=== PATIENT | female | born 1950 | race Caucasian/White ===

== ENCOUNTER 2016-04-18 17:02 | Outpatient (CLI) | payer OTHER | END 2016-04-18 17:03 | disposition home or self-care (01) | DX: M79.669 Pain in unspecified lower leg (principal) ==

== ENCOUNTER → 2016-10-17 | Outpatient (CLI) | payer OTHER ==
[2016-10-17 19:33] LABS: FERRITIN 160.4 ng/mL (11.0-306.8)
[2016-10-17 19:45] LABS: THYROID STIMULATING HORMONE 1.52 uIU/mL (0.34-5.60)
[2016-10-22 07:51] LABS: T3 REVERSE 17 ng/dL (8-25)
== END ==
LOC: LAB.N 08:00
PROVIDERS: ATTEND Nurse Practitioner Family
DX: E03.2 Hypothyroidism due to medicaments and other exogenous substances (principal)
CPT/HCPCS: 36415; 82306; 82728; 84436; 84439; 84443; 84481; 84482; 86376; 86800

== ENCOUNTER 2018-01-21 08:00 | Outpatient (CLI) | payer OTHER ==
[2018-01-21 18:59] LABS: BILIRUBIN,URINE NEGATIVE (NEGATIVE); GLUCOSE, URINE (UA) NEGATIVE (NEGATIVE); KETONES,URINE (UA) NEGATIVE (NEGATIVE); LEUKOCYTE ESTERASE, URINE LARGE (NEGATIVE); NITRITE,URINE POSITIVE (NEGATIVE); OCCULT BLOOD,URINE LARGE (NEGATIVE); PROTEIN,URINE NEGATIVE (NEGATIVE); UROBILINOGEN,URINE 0.2 (NORMAL) E.U./dL (NORMAL)
[2018-01-21 19:00] LABS: CLARITY,URINE CLEAR (CLEAR)
== END 2018-01-21 23:59 | disposition home or self-care (01) ==
LOC: LAB.R 08:00
PROVIDERS: ATTEND Nurse Practitioner Family
DX: R30.9 Painful micturition, unspecified (principal)
CPT/HCPCS: 81003; 87086; 87181

== ENCOUNTER 2018-08-12 19:07 | Outpatient (CLI) | payer BC ==
--- NOTE | 2018-08-13 12:10 | Ultrasound Report ---
Reason: EPISODIC LEFT CAROTID BRUIT Procedure Date: 08/12/2018 Accession Number: [id number] / [id number] Procedure: US - Carotid Doppler Complete CPT Code: FULL RESULT: EXAM: BILATERAL CAROTID AND VERTEBRAL ARTERY DUPLEX DOPPLER ULTRASOUND: EXAM DATE: 08/12/2018 07:22 PM CLINICAL HISTORY: Episodic left carotid bruit. COMPARISON: None. TECHNIQUE: Grayscale imaging, color Doppler, and duplex spectral Doppler were used to evaluate the carotid and vertebral arteries bilaterally. Static images were obtained. FINDINGS: There is mild bilateral intimal thickening. Both carotid systems demonstrate a mixture of echogenic and hypoechoic plaque throughout the visualized course on grayscale Doppler, subjectively less than 50%. Spectral waveforms demonstrated preserved brisk systolic upstrokes throughout both carotid systems. Normal antegrade flow is present in bilateral vertebral arteries. VELOCITIES (cm/sec): Right CCA mid: PSV 79 cm/sec CCA dist: PSV 72 cm/sec ICA prox: PSV 74.4 cm/sec, EDV 28.9 cm/sec ICA mid: PSV 96.7 cm/sec, EDV 26 cm/sec ICA dist: PSV 112.6 cm/sec, EDV 46.9 cm/sec ECA: PSV 136.4 cm/sec Vert: PSV 49.1 cm/sec ICA/CCA: 1.4 Left CCA mid: PSV 73.6 cm/sec CCA dist: PSV 67.9 cm/sec ICA prox: PSV 83.0 cm/sec, EDV 37.5 cm/sec ICA mid: PSV 114.1 cm/sec, EDV 49.1 cm/sec ICA dist: PSV 96.7 cm/sec, EDV 31.8 cm/sec ECA: PSV 75.1 cm/sec Vert: PSV 70 cm/sec ICA/CCA: 1.5 ICA diameter stenosis: Right: <50% by velocity and <70% by NASCET criteria. Left: <50% by velocity and <70% by NASCET criteria. IMPRESSION: 1. Subjectively less than 50% stenosis of diffuse hypoechoic and echogenic atherosclerosis on grayscale ultrasound in the bilateral carotid artery systems. 2. In the right carotid artery there are no elevated carotid artery velocities to suggest hemodynamically significant stenosis. 3. In the left carotid artery there are no elevated carotid artery velocities to suggest hemodynamically significant stenosis. 4. Normal antegrade flow is present in bilateral vertebral arteries. General Recommendations: Stenosis =50% ICA - Follow-up ultrasound 6-12 months Stenosis <50% ICA - High Risk Patient with plaque - Follow-up ultrasound 1-2 years Normal Study but High Risk Patient - Follow-up ultrasound 3-5 years Management recommendations and diagnostic criteria are based on current IAC endorsed standards in Carotid Artery Stenosis: Grayscale and Doppler Ultrasound Diagnosis. Validated velocity measurements with angiographic measurements and velocity criteria are extrapolated from diameter data as defined by the Society of Radiologists in Ultrasound Consensus Conference Radiology 2003; 229;340-346. RADIA
== END 2018-08-12 19:08 | disposition home or self-care (01) ==
LOC: DI 19:07
PROVIDERS: ATTEND Nurse Practitioner Family
DX: R09.89 Other specified symptoms and signs involving the circulatory and respiratory systems (principal)
CPT/HCPCS: 93880

== ENCOUNTER 2018-09-20 16:28 | Emergency (ER) | payer BC ==
[2018-09-20 16:35] VITALS: BP 172/90
[2018-09-20] MEDS ORDERED: CLINDAMYCIN 150 MG CAPSULE PO STA ×2 (16:47→16:57)
[2018-09-20] MEDS ORDERED: predniSONE 20 MG TABLET PO STA (16:47)
--- NOTE | 2018-09-20 16:57 | ED Physician Documentation ---
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 She was working in the garden yesterday and may have been stung or bit by something. Today she has a progressive area of redness that is more painful than itchy but it is certainly itchy as well. No fevers or chills.) Review of Systems Constitutional: denies: Fever, Chills Cardiac: reports: Reviewed and negative Respiratory: reports: Reviewed and negative GI: reports: Reviewed and negative PD PAST MEDICAL HISTORY - Past Medical History Past Medical History: Yes Cardiovascular: None GI: GERD Musculoskeletal: None - Past Surgical History Past Surgical History: Yes HEENT: Tonsil/Adenoidectomy - Present Medications Home Medications: Ambulatory Orders Medication Instructions Recorded Confirmed Clindamycin HCl [Clindamycin 300MG 300 mg PO Q6H #28 capsule 09/20/18 CAP] predniSONE [Deltasone] 60 mg PO DAILY 5 Days tablet 09/20/18 - Allergies Allergies/Adverse Reactions: Allergies Allergy/AdvReac Type Severity Reaction Status Date / Time acyclovir Allergy Rash Verified 09/20/18 16:37 cephalexin [From Keflex] Allergy Anaphylaxis Verified 09/20/18 16:37 erythromycin base Allergy Rash Verified 09/20/18 16:37 naproxen Allergy Rash Verified 09/20/18 16:37 Penicillins Allergy Anaphylaxis Verified 09/20/18 16:37 Sulfa (Sulfonamide Allergy Rash Verified 09/20/18 16:37 Antibiotics) celecoxib [From Celebrex] AdvReac Cramps Verified 09/20/18 16:37 - Social History Does the pt smoke?: No Smoking Status: Never smoker Does the pt drink ETOH?: No Does the pt have substance abuse?: No - Immunizations Immunizations are current?: Yes - POLST Patient has POLST: No PD ED PE NORMAL - Vitals Vital signs reviewed: Yes - General General: Alert and oriented X 3, No acute distress - Derm Derm: Other (There is a area of cellulitis measuring about 4 cm around to the distal anterior left forearm without limited range of motion at the wrist.) - Neuro Neuro: Alert and oriented X 3, Normal speech Results - Vitals Vitals: Vital Signs - 24 hr 09/20/18 16:29 Temperature 36.5 C Heart Rate 79 Respiratory 18 Rate Blood Pressure 172/90 H O2 Saturation 98 Oxygen O2 Source Room air PD MEDICAL DECISION MAKING - ED course ED course: Probably a bug bite, it could be infected. The fact that it is more painful than itchy is concerning for cellulitis though. Note multiple antibiotic allergies. Departure - Departure Disposition: 01 Home, Self Care Clinical Impression: Cellulitis Qualifiers: Site of cellulitis: extremity Site of cellulitis of extremity: upper extremity Laterality: left Qualified Code(s): L03.114 - Cellulitis of left upper limb Condition: Good Record reviewed to determine appropriate education?: Yes Health Concerns: rash Plan of Treatment: Probably a bug bite, it could be infected. The fact that it is more painful than itchy is concerning for cellulitis though. Note multiple antibiotic allergies. Care Goals: improve Assessment: as above Instructions: Cellulitis Dc Prescriptions: Clindamycin HCl [Clindamycin 300MG CAP] 300 mg PO Q6H #28 capsule predniSONE [Deltasone] 60 mg PO DAILY 5 Days tablet Comments: Return for fever, worsening, other new or worrisome times. Follow-up with your doctor midweek if not resolved. Your blood pressure was elevated today on check into the emergency department. This does not mean that you have hypertension, it is a common phenomenon to come to the emergency department and have elevated blood pressure. I recommend that you see your primary care physician within the week to have it rechecked when you are feeling better.
== END 2018-09-20 17:04 | disposition home or self-care (01) ==
LOC: ED 16:28
DX: L03.114 Cellulitis of left upper limb (principal); R03.0 Elevated blood-pressure reading, without diagnosis of hypertension
CPT/HCPCS: 99282; 99283; A9270; J7512

== ENCOUNTER 2018-12-16 12:56 | Outpatient (CLI) | payer BC ==
--- NOTE | 2018-12-17 17:05 | Ultrasound Report ---
Reason: LOCALIZED SWELLING, MASS AND LUMP, LEFT LOWER LIMB Procedure Date: 12/16/2018 Accession Number: [id number] / [id number] Procedure: US - Ext Limited Non Vascular CPT Code: FULL RESULT: EXAM: LEFT LOWER EXTREMITY ULTRASOUND - LIMITED EXAM DATE: 12/16/2018 02:14 PM. CLINICAL HISTORY: LOCALIZED SWELLING, MASS AND LUMP, LEFT LOWER LIMB. COMPARISON: None. TECHNIQUE: Real-time scanning was performed with static images obtained. FINDINGS: Left anterolateral ribera soft tissues were imaged and appeared unremarkable. For comparison purposes only, right anterolateral ribera soft tissues were also imaged and appeared unremarkable as well. IMPRESSION: 1. Normal exam. No left anterolateral ribera soft tissue abnormality evident. RADIA
== END 2018-12-16 12:57 | disposition home or self-care (01) ==
LOC: DI 12:56
PROVIDERS: ATTEND Nurse Practitioner Family
DX: R22.42 Localized swelling, mass and lump, left lower limb (principal)
CPT/HCPCS: 76882

== ENCOUNTER 2019-01-08 07:05 | Outpatient (CLI) | payer BC ==
--- NOTE | 2019-01-08 22:51 | XRAY Report ---
Reason: LEFT HIP PAIN Procedure Date: 01/08/2019 Accession Number: [id number] / [id number] Procedure: XRS - Hip w/Pelvis 2-3V LT CPT Code: Final Report FULL RESULT: EXAM: LEFT HIP RADIOGRAPHY EXAM DATE: 01/08/2019 08:06 AM. CLINICAL HISTORY: LEFT HIP PAIN. COMPARISON: None. TECHNIQUE: 2 views. FINDINGS: Bones: Some subchondral cystic lucencies in the acetabular roofs, slightly more on the left than the right but bilateral. No fractures. Joints: Joint spaces appear preserved. No dislocations. Some spurring off of the acetabular roof. Soft Tissues: Calcification in the right pelvis likely represents a phlebolith. IMPRESSION: Bilateral hip osteoarthritis, left more than right, with some subchondral cystic change, but no significant joint space loss. No fractures. RADIA
--- NOTE | 2019-01-08 22:55 | XRAY Report ---
Reason: LOW BACK PAIN Procedure Date: 01/08/2019 Accession Number: [id number] / [id number] Procedure: XRS - Lumbar Spine 2 View CPT Code: Final Report FULL RESULT: EXAM: LUMBOSACRAL SPINE RADIOGRAPHY EXAM DATE: 01/08/2019 08:06 AM. CLINICAL HISTORY: LOW BACK PAIN. COMPARISONS: HIP W/PELVIS 2-3V LT 01/08/2019 8:20 AM. TECHNIQUE: 3 views. FINDINGS: Alignment: Normal. No spondylolisthesis or scoliosis. Bones: 4 [id number] lumbar vertebral bodies. L1 has hypoplastic left rib, may be right as well. No fractures. Vertebral body heights are maintained. Endplate osteophytes at L2-L3 and L3-L4. Disks: Mild disk height loss at L2-L3, L3-L4. Facets: No degenerative changes. Sacroiliac Joints: There may be some questionable ankylosis of the anterior aspect of the inferior left sacroiliac joint. Soft Tissues: Normal. The visualized bowel gas pattern is normal. IMPRESSION: Mild spondylosis of the lumbar spine. No vertebral body height loss or subluxation. RADIA
== END 2019-01-08 07:06 | disposition home or self-care (01) ==
LOC: DI.S 07:05
PROVIDERS: ATTEND Nurse Practitioner Family
DX: M16.0 Bilateral primary osteoarthritis of hip (principal); M51.36 Other intervertebral disc degeneration, lumbar region
CPT/HCPCS: 72100

== ENCOUNTER 2019-04-09 11:28 | Outpatient (CLI) | payer BC ==
[2019-04-09 17:48] LABS: BASOPHILS % (AUTO) 0.5 %; EOSINOPHILS # (AUTO) 0.2 10^3/uL (0.0-0.7); EOSINOPHILS % (AUTO) 2.9 %; HGB - HEMOGLOBIN 13.9 g/dL (12.0-16.0); LYMPHOCYTES # (AUTO) 1.8 10^3/uL (1.5-3.5); LYMPHOCYTES % (AUTO) 23.8 %; MEAN CORPUSCULAR HGB CONC 32.1 g/dL (32.0-36.0); MEAN CORPUSCULAR VOLUME 93.5 fL (81.0-99.0); MEAN PLATELET VOLUME 13.5 fL (7.9-10.8); MONOCYTES # (AUTO) 0.5 10^3/uL (0.0-1.0); MONOCYTES % (AUTO) 6.2 %; NEUTROPHILS % (AUTO) 66.3 %; PLT - PLATELET COUNT 178 10^3/uL (130-450); RED BLOOD COUNT 4.63 10^6/uL (4.20-5.40); RED CELL DISTRIBUTION WIDTH 13.1 % (12.0-15.0); WHITE BLOOD COUNT 7.6 x10^3/uL (4.8-10.8)
[2019-04-09 18:26] LABS: ALBUMIN 4.4 g/dL (3.2-5.5); ALBUMIN/GLOBULIN RATIO 1.5 (1.0-2.2); ALKALINE PHOSPHATASE 52 IU/L (42-121); ALT ALANINE AMINOTRANSFERASE 21 IU/L (10-60); AST ASPARTATE AMINOTRANSFERASE 26 IU/L (10-42); BILIRUBIN,TOTAL 1.2 mg/dL (0.2-1.0); BUN - BLOOD UREA NITROGEN 13 mg/dL (6-20); CARBON DIOXIDE - CO2 28 mmol/L (21-32); CHLORIDE 100 mmol/L (101-111); CREATININE 0.6 mg/dL (0.4-1.0); GFR - MDRD 100 (>89); GLUCOSE 84 mg/dL (70-100); SODIUM 139 mmol/L (135-145); TOTAL PROTEIN 7.4 g/dL (6.7-8.2)
[2019-04-09 18:36] LABS: T4 (THYROXINE) 5.92 ug/dL (6.09-12.23)
[2019-04-09 18:37] LABS: CRP HIGH SENSITIVITY < 0.5 mg/L
[2019-04-09 18:39] LABS: THYROID STIMULATING HORMONE 1.46 uIU/mL (0.34-5.60)
[2019-04-09 18:45] LABS: FERRITIN 184.4 ng/mL (11.0-306.8)
== END 2019-04-09 11:29 | disposition home or self-care (01) ==
LOC: LAB.S 11:28
PROVIDERS: ATTEND Nurse Practitioner Family
DX: Z00.00 Encounter for general adult medical examination without abnormal findings (principal); E55.9 Vitamin D deficiency, unspecified; E78.5 Hyperlipidemia, unspecified; R53.83 Other fatigue
CPT/HCPCS: 36415; 80053; 82306; 82728; 84436; 84439; 84443; 84481; 85025; 85651; 86141

== ENCOUNTER 2019-05-17 11:00 | Outpatient (CLI) | payer BC | END 2019-05-17 11:01 | disposition critical access hospital (66) | LOC: EMS 11:00 | PROVIDERS: ATTEND Surgery | DX: R07.9 Chest pain, unspecified (principal); R68.84 Jaw pain | CPT/HCPCS: A0425; A0427 ==

== ENCOUNTER 2019-05-17 11:23 | Observation (INO) | payer BC, MEDICARE ==
--- NOTE | 2019-05-17 11:32 | ED Physician Documentation ---
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 She had onset of right neck and jaw then into chest pain arm pressure. It was nonpleuritic. It did not change with movement. She felt some nausea and lightheadedness.) Timing - details: Abrupt onset, Now resolved (She states it started improving after 15 or 20 minutes. It may have been improved slightly with some antacid. EMS arrived and gave her nitroglycerin which seemed to help a bit more as well. She feels just a residual mild discomfort in the chest on arrival here. She has not had any recent illness. No cough or pleuritic pains. She denied any near- syncope.) Quality: Tightness, Aching. No: Tearing, Stabbing Location: Substernal Radiation: Jaw, Neck (right) Improved by: Nitro (Some improvement with nitroglycerin by EMS but not complete resolution.), Antacids (seemed slightly better with antacid). No: Rest Worsened by: No: Inspiration, Movement, Palpation Associated symptoms: Shortness of air, Nausea, Feeling faint / dizzy. No: Palpitations, Cough Similar symptoms before: Has not had sx before Recently seen: Not recently seen Review of Systems Constitutional: denies: Fever, Chills, Myalgias Nose: denies: Rhinorrhea / runny nose, Congestion Throat: denies: Sore throat Cardiac: reports: Chest pain / pressure. denies: Palpitations, Pedal edema, Calf pain Respiratory: reports: Dyspnea. denies: Cough, Wheezing GI: reports: Nausea. denies: Vomiting, Diarrhea Neurologic: denies: Generalized weakness, Focal weakness, Near syncope, Altered mental status, Headache PD PAST MEDICAL HISTORY - Past Medical History Cardiovascular: None Respiratory: None Neuro: None Endocrine/Autoimmune: None GI: GERD Musculoskeletal: None - Past Surgical History Past Surgical History: Yes HEENT: Tonsil/Adenoidectomy - Present Medications Home Medications: Ambulatory Orders Medication Instructions Recorded Confirmed Clindamycin HCl [Clindamycin 300MG 300 mg PO Q6H #28 capsule 09/20/18 CAP] predniSONE [Deltasone] 60 mg PO DAILY 5 Days tablet 09/20/18 - Allergies Allergies/Adverse Reactions: Allergies Allergy/AdvReac Type Severity Reaction Status Date / Time acyclovir Allergy Rash Verified 09/20/18 16:37 cephalexin [From Keflex] Allergy Anaphylaxis Verified 09/20/18 16:37 erythromycin base Allergy Rash Verified 09/20/18 16:37 naproxen Allergy Rash Verified 09/20/18 16:37 Penicillins Allergy Anaphylaxis Verified 09/20/18 16:37 Sulfa (Sulfonamide Allergy Rash Verified 09/20/18 16:37 Antibiotics) celecoxib [From Celebrex] AdvReac Cramps Verified 09/20/18 16:37 - Living Situation Living Situation: reports: With spouse/s.o. Living Arrangement: reports: At home - Social History Does the pt smoke?: No Smoking Status: Never smoker Does the pt drink ETOH?: No Does the pt have substance abuse?: No - Family History Family history: reports: CAD. denies: Venous thromboembolism, Aortic aneursym, Aortic dissection - Immunizations Immunizations are current?: Yes - POLST Patient has POLST: No PD ED PE NORMAL - Vitals Vital signs reviewed: Yes - General General: Alert and oriented X 3, No acute distress, Well developed/nourished - HEENT HEENT: Pharynx benign - Neck Neck: Supple, no meningeal sign, No adenopathy - Cardiac Cardiac: RRR, No murmur - Respiratory Respiratory: Clear bilaterally, Other (no chestwall tenderness) - Abdomen Abdomen: Soft, Non tender - Derm Derm: Normal color, Warm and dry - Extremities Extremities: No tenderness to palpate, Normal ROM s pain, No edema, No calf tenderness / cord - Neuro Neuro: Alert and oriented X 3, No motor deficit, Normal speech Eye Opening: Spontaneous Motor: Obeys Commands Verbal: Oriented GCS Score: 15 - Psych Psych: Normal mood, Normal affect Results - Vitals Vitals: Vital Signs - 24 hr 05/17/19 05/17/19 05/17/19 11:33 12:02 12:37 Temperature 36.6 C Heart Rate 68 64 70 Respiratory 20 18 16 Rate Blood Pressure 111/85 H 133/77 H 109/65 O2 Saturation 100 100 97 Oxygen O2 Source Room air - EKG (time done) 11:43 Rate: Rate (enter#) (67) Rhythm: NSR [place]: Normal Intervals: Normal CO QRS: Normal Ischemia: Normal ST segments. No: ST elevation c/w ischemia, ST depression - Labs Labs: Laboratory Tests 05/17/19 05/17/19 05/17/19 11:50 11:50 11:50 WBC 9.1 RBC 4.35 Hgb 13.8 Hct 40.3 MCV 92.6 MCH 31.7 H MCHC 34.2 RDW 12.9 Plt Count 152 MPV 12.5 H Neut # (Auto) 6.3 Lymph # (Auto) 2.1 Evans # (Auto) 0.6 Eos # (Auto) 0.2 Baso # (Auto) 0.1 Absolute Nucleated RBC 0.00 Nucleated RBC % 0.0 D-Dimer Sodium 136 Potassium 3.6 Chloride 103 Carbon Dioxide 25 Anion Gap 8.0 BUN 18 Creatinine 0.7 Estimated GFR (MDRD) 84 L Glucose 109 H Calcium 9.0 Total Bilirubin 1.0 AST 28 ALT 21 Alkaline Phosphatase 44 Troponin I High Sens 3.1 B-Natriuretic Peptide Total Protein 6.8 Albumin 4.1 Globulin 2.7 Albumin/Globulin Ratio 1.5 Lipase 36 05/17/19 05/17/19 05/17/19 12:45 12:45 13:40 WBC RBC Hgb Hct MCV MCH MCHC RDW Plt Count MPV Neut # (Auto) Lymph # (Auto) Evans # (Auto) Eos # (Auto) Baso # (Auto) Absolute Nucleated RBC Nucleated RBC % D-Dimer 211.1 Sodium Potassium Chloride Carbon Dioxide Anion Gap BUN Creatinine Estimated GFR (MDRD) Glucose Calcium Total Bilirubin AST ALT Alkaline Phosphatase Troponin I High Sens 10.3 B-Natriuretic Peptide 27 Total Protein Albumin Globulin Albumin/Globulin Ratio Lipase - Rads (name of study) chest Radiology: Prelim report reviewed (no acute process), See rad report PD MEDICAL DECISION MAKING - ED course Complexity details: reviewed results (Her EKG chest x-ray and initial labs are normal. A repeat troponin at 2 hours is still in the normal range but did show a over 200% change from 3-10. Granted they are both normal but there was a slight rise so the patient does need to be further evaluated for full rule out of an acute coronary syndrome.), re-evaluated patient, considered differential (Will check chest x-ray EKG and lab tests including d-dimer and troponin for concerns of coronary event as well as pulmonary process or vascular process. Consider possibilities of musculoskeletal but it does not hurt with movement. She did not have any injury. Consider gastroesophageal as there had been some slight improvement with antacid. However she still has just a very mild vague discomfort in her chest so ACS is most important.), d/w patient, d/w intelligence consultant (Hospitalist) Departure - Departure Disposition: ED Place in Observation Clinical Impression: Chest pain, rule out acute myocardial infarction Condition: Stable Record reviewed to determine appropriate education?: Yes
[2019-05-17 11:57] LABS: BASOPHILS # (AUTO) 0.1 10^3/uL (0.0-0.1); BASOPHILS % (AUTO) 0.5 %; EOSINOPHILS # (AUTO) 0.2 10^3/uL (0.0-0.7); EOSINOPHILS % (AUTO) 1.6 %; HGB - HEMOGLOBIN 13.8 g/dL (12.0-16.0); LYMPHOCYTES # (AUTO) 2.1 10^3/uL (1.5-3.5); LYMPHOCYTES % (AUTO) 22.6 %; MEAN CORPUSCULAR HEMOGLOBIN 31.7 pg (27.0-31.0); MEAN CORPUSCULAR HGB CONC 34.2 g/dL (32.0-36.0); MEAN CORPUSCULAR VOLUME 92.6 fL (81.0-99.0); MEAN PLATELET VOLUME 12.5 fL (7.9-10.8); MONOCYTES # (AUTO) 0.6 10^3/uL (0.0-1.0); MONOCYTES % (AUTO) 6.1 %; NEUTROPHILS # (AUTO) 6.3 10^3/uL (1.5-6.6); NEUTROPHILS % (AUTO) 68.9 %; PLT - PLATELET COUNT 152 10^3/uL (130-450); RED BLOOD COUNT 4.35 10^6/uL (4.20-5.40); RED CELL DISTRIBUTION WIDTH 12.9 % (12.0-15.0); WHITE BLOOD COUNT 9.1 x10^3/uL (4.8-10.8)
[2019-05-17 12:19] LABS: ALBUMIN 4.1 g/dL (3.2-5.5); ALBUMIN/GLOBULIN RATIO 1.5 (1.0-2.2); CREATININE 0.7 mg/dL (0.4-1.0); TOTAL PROTEIN 6.8 g/dL (6.7-8.2)
--- NOTE | 2019-05-17 12:25 | XRAY Report ---
Reason: Chest Pain Procedure Date: 05/17/2019 Accession Number: [id number] / [id number] Procedure: XR - Chest 1 View X-Ray CPT Code: 22681 Final Report FULL RESULT: EXAM: CHEST RADIOGRAPHY 1 VIEW EXAM DATE: 05/17/2019. CLINICAL HISTORY: Chest pain. COMPARISON: None. TECHNIQUE: AP upright portable chest at 1152. FINDINGS: Lungs/Pleura: Normal vasculature. The lungs are clear. No pleural fluid or pneumothorax. Mediastinum: Normal cardiac and mediastinal contours. Bones: Old right clavicle fracture, metal plate attached with multiple screws. Small benign cysts in each humeral head. Small calcification adjacent to the left greater tuberosity, consistent with calcific tendinosis. IMPRESSION: No radiographic cardiopulmonary abnormality. RADIA
[2019-05-17] MEDS ORDERED: LIDOCAINE VISCOUS 2% 15 ML UDC MM STA (13:26)
[2019-05-17] MEDS ORDERED: MAG HYDROX/AL HYDROX/SIMETH 30 ML UDC PO STA (13:26)
[2019-05-17] MEDS ORDERED: ASPIRIN CHEW 81 MG TABLET PO STA (14:33)
[2019-05-17] MEDS ORDERED: SODIUM CHLORIDE FLUSH 0.9% 10 ML SYRINGE IVP PRN (14:34)
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
[2019-05-17] MEDS ORDERED: NITROGLYCERIN SL 0.4 MG TABLET SL PRN (17:41)
[2019-05-17 17:53] LABS: HB2 TOTAL 14.6 g/dL; HEMOGLOBIN A1C 0.52 g/dL; HEMOGLOBIN A1C % 5.4 % (4.6-6.2)
--- NOTE | 2019-05-17 18:34 | PHARMACY PROGRESS NOTE ---
- Best Possible Medication History Admit Date and Time: 05/17/19 1439 Processed by: Pharmacy Medication History completed: Yes Patient Interview: Completed Secondary Source(s): Written medication list (patient's mobile list), Pharmacy records (patients outpt pharmacy) As the person ultimately responsible for medication therapy, providers are able to order a medication from an existing home medication list in [facility] via the "Reconcile Routine" prior to Confirmation of that medication by operations support specialist. Such practice is discouraged except when the physician, in their clinical judgment, deems that a medical need exists for a medication without regard to previous use.
[2019-05-17] MEDS ORDERED: LORATADINE 10 MG TABLET PO PRN (19:25)
[2019-05-17] MEDS: FAMOTIDINE 20 MG TABLET PO SCH (20:12)
[2019-05-17] MEDS: ATORVASTATIN 40 MG TABLET PO SCH (20:13)
[2019-05-17] MEDS: SODIUM CHLORIDE FLUSH 0.9% 10 ML SYRINGE IVP SCH (20:13)
[2019-05-18] MEDS: SODIUM CHLORIDE FLUSH 0.9% 10 ML SYRINGE IVP SCH ×3 (02:50→16:17)
[2019-05-18 05:48] LABS: BASOPHILS # (AUTO) 0.1 10^3/uL (0.0-0.1); EOSINOPHILS # (AUTO) 0.4 10^3/uL (0.0-0.7); EOSINOPHILS % (AUTO) 5.8 %; HGB - HEMOGLOBIN 13.8 g/dL (12.0-16.0); LYMPHOCYTES # (AUTO) 2.6 10^3/uL (1.5-3.5); LYMPHOCYTES % (AUTO) 36.6 %; MEAN CORPUSCULAR HEMOGLOBIN 30.7 pg (27.0-31.0); MEAN CORPUSCULAR HGB CONC 32.8 g/dL (32.0-36.0); MEAN CORPUSCULAR VOLUME 93.8 fL (81.0-99.0); MEAN PLATELET VOLUME 12.8 fL (7.9-10.8); MONOCYTES # (AUTO) 0.7 10^3/uL (0.0-1.0); MONOCYTES % (AUTO) 9.3 %; NEUTROPHILS # (AUTO) 3.4 10^3/uL (1.5-6.6); PLT - PLATELET COUNT 162 10^3/uL (130-450); RED BLOOD COUNT 4.49 10^6/uL (4.20-5.40); RED CELL DISTRIBUTION WIDTH 13.1 % (12.0-15.0); WHITE BLOOD COUNT 7.2 x10^3/uL (4.8-10.8)
[2019-05-18 06:05] LABS: ALBUMIN 3.9 g/dL (3.2-5.5); ALBUMIN/GLOBULIN RATIO 1.6 (1.0-2.2); ALKALINE PHOSPHATASE 41 IU/L (42-121); ALT ALANINE AMINOTRANSFERASE 19 IU/L (10-60); AST ASPARTATE AMINOTRANSFERASE 21 IU/L (10-42); BILIRUBIN,TOTAL 1.2 mg/dL (0.2-1.0); BUN - BLOOD UREA NITROGEN 15 mg/dL (6-20); CARBON DIOXIDE - CO2 30 mmol/L (21-32); CHLORIDE 104 mmol/L (101-111); CHOL/HDL RATIO 3.5 (<4.4); CHOLESTEROL 228 mg/dL; CREATININE 0.8 mg/dL (0.4-1.0); GFR - MDRD 72 (>89); GLUCOSE 106 mg/dL (70-100); HDL CHOLESTEROL 66 mg/dL; LDL CHOLESTEROL,CALCULATED 146 mg/dL; LDL/HDL RATIO 2.2 (<4.4); MAGNESIUM 2.4 mg/dL (1.7-2.8); PHOSPHORUS 3.7 mg/dL (2.5-4.6); SODIUM 140 mmol/L (135-145); TOTAL PROTEIN 6.3 g/dL (6.7-8.2); VLDL CHOLESTEROL 16 mg/dL
[2019-05-18] MEDS ORDERED: ASPIRIN EC 81 MG TABLET PO SCH (09:00)
[2019-05-18] MEDS: FAMOTIDINE 20 MG TABLET PO SCH ×2 (09:42→20:49)
--- NOTE | 2019-05-18 13:50 | Nuclear Medicine Report ---
Reason: chest pain Procedure Date: 05/18/2019 Accession Number: [id number] / [id number] Procedure: NM - Myocardial Perfusion STR/RST CPT Code: Final Report FULL RESULT: EXAM: SINGLE-ISOTOPE EXERCISE STRESS TEST. SINGLE-ISOTOPE AND ONE-DAY REST/STRESS MYOCARDIAL PERFUSION SCANS WITH TOMOGRAPHIC IMAGING, QUANTITATIVE ANALYSIS, WALL MOTION ANALYSIS AND CALCULATION OF EJECTION FRACTION. EXAM DATE: 05/18/2019 12:21 PM. CLINICAL HISTORY: Chest pain. COMPARISON: None available. TECHNIQUE: A rest myocardial perfusion scan was done with tomography after the intravenous administration of 10.4 mCi Tc-99m sestamibi. After an appropriate delay, a treadmill exercise stress was performed according to department protocol. The patient exercised for 8 minutes and 1 seconds. The maximum heart rate was 146 bpm, which was 94% of the maximum predicted heart rate of 154 bpm. At approximately peak heart rate, 43.3 mCi of Tc-99m sestamibi was injected for stress myocardial perfusion scan. Motion correction was applied when appropriate. Gated tomographic images were obtained for wall motion analysis and computation of left ventricular ejection fraction. FINDINGS: Images show a mild severity fixed defect in the anterior apex. No convincing significant reversible perfusion defects. Wall motion analysis demonstrates septal hypokinesis. The left ventricular end-diastolic volume is 59 cc. The left ventricular end-systolic volume is 10 cc. The left ventricular ejection fraction is calculated to be 83%. IMPRESSION: 1. Fixed defect in the anterior apex. No convincing significant reversible perfusion defects. 2. Normal left ventricular ejection fraction of 83%. 3. Septal hypokinesis. 4. Normal left ventricular cavity size, no change with stress. Please correlate findings with stress ECG tracings and procedure notes. RADIA
--- NOTE | 2019-05-18 14:31 | CARDIAC PROCEDURE NOTE ---
DATE OF SERVICE: 05/18/2019 Physician: Shelly Lowe MD INDICATION: Chest pain. CARDIAC RISK FACTORS: Postmenopausal status, hyperlipidemia, estrogen and progesterone use, family history of heart disease. DESCRIPTION OF PROCEDURE: After signing informed consent, the patient underwent a Alen-protocol treadmill stress test with nuclear myocardial perfusion imaging. RESTING HEART RATE: 59. PEAK HEART RATE: 146 (94% predicted maximum heart rate for age). RESTING BLOOD PRESSURE: 116/72. PEAK BLOOD PRESSURE: 153/75. The patient exercised for 8 minutes on a Alen-protocol treadmill stress test. She achieved a peak heart rate of 146 (94% PMHR), and 10.2 METS. The patient had mild left jaw discomfort. No right-sided jaw discomfort, which was yesterday's pain, nor any radiation of the pain into her neck and chest. She had no pleuritic chest pain. She developed mild shortness of breath at peak. Oxygen saturation was 94-98% on room air throughout the test. She rated her Mingo scale perceived exertion at 15/20 at peak. In recovery, she did report that the right jaw had a trivial discomfort, which she thought was "sensitivity of the gums." RESTING EKG: Normal sinus rhythm, vertical axis, biphasic T waves in leads V2 through V4. EKG AT PEAK: New flattening of T waves in the inferior leads, even more accentuated right axis deviation. SUMMARY 1. Abnormal resting EKG. 2. Fair to good exercise tolerance. 3. T-wave abnormalities occur with exertion, which are consistent with ischemic changes. 4. She did not develop her typical jaw and chest discomfort during this exertion, but had a separate very mild uncomfortable feeling in the left jaw with exercise and in the right jaw postexercise. 5. Nuclear images reported separately. 6. This patient's cardiac risk based on all the above: Moderate. cc: STANLEY Hastings TD: 05/18/2019 14:09 MARILEE
--- NOTE | 2019-05-18 17:10 | DISCHARGE SUMMARY ---
Discharge Summary Admit Date: 05/17/19 Discharge Date: 05/18/19 Discharging Provider: Britton Mccrary Primary Care Provider: Dr. Glynn Condition at Discharge: Stable Discharge Facility Name: [facility] - DIAGNOSES Admission Diagnoses: (1) Chest pain, rule out acute myocardial infarction Abnormal EKG GERD Stress Hyperlipidemia Discharge Diagnoses with Status of Each Condition: (1) Chest pain, rule out acute myocardial infarction resolved. Aspirin and Nitroglycerin Sb release pt's chest pain. pt denies any more chest pain. pt has normal troponin level, but has abnormal EKG T wave inversion in leads V2-V4. Stress test reveals fixed defect in the anterior apex. No convincing significant reversible perfusion defects, normal EF at 83%, septal hypokinesis, normal left ventricular cavity size no change with stress. call [facility], both deployment technician Dr. Garcia and hospitalist Dr Dykes accepted for high level of care pt is prescribed Aspirin, Lipitor, Coreg, nitroglycerin PRN Abnormal EKG T wave inversion in leads V2-V4 GERD stable abnormal Stress test Stress test reveals fixed defect in the anterior apex. No convincing significant reversible perfusion defects, normal EF at 83%, septal hypokinesis, normal left ventricular cavity size no change with stress. Hyperlipidemia elevated both cholesterol and LDL level. pt is prescribed Lipitor. - HPI History of Present Illness: refer from Ms. Young's HPI on 05/17/2019 Maine Jack is a well appearing 68-year old white female with a past medical history including hyperlipidemia, arthritis, low back pain, left leg weakness, left foot drop, status post esophageal dilation from an esophageal stricture, cellulitis of right forearm, elevated bilirubin of unknown etiology, tinnitus, and GERD. 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 She was in her usual state of health this morning when she noticed a sudden onset of right ear pain, followed by right jaw pain. This worried her, and she cannot describe the amount of time this went on. She excused herself, and then developed sharp mid-sternal chest pains, tachycardia with chest palpitations, a flushed appearance, anxiety, mild nausea and dizziness. A nearby Physicians medical assistant internal medicine came to her aide, and recommended calling EMS for concerns of a possible myocardial infarction. The patient was treated with sublingual nitroglycerin and full dose ASA while en route to the ED. This relieved her acute chest pain, but she continued to have jaw and ear discomfort. Labs show 2 negative troponins of 3.1, and 10.3. All other labs were normal including a d dimer, and BNP. An EKG is abnormal showing T wave inversion in leads V2-V4, suggesting anterior ischemia. A chest x-ray was normal, preliminary echo results show no wall motion abnormalities, and upon my exam, the patient is chest pain free. The patient was admitted for a probable cardiac nuclear stress test with Dr. Lowe in the AM, rule out MN - HOSPITAL COURSE Hospital Course: pt was admitted for suddenly onset of right ear, jaw, and middle sternal chest pain. pt's has three times of normal arrange of troponin level, second time is slight elevated but still in normal arrange. pt had abnormal EKG, T wave inversion at V2-4. Aspirin and nitroglycerin released pt's chest pain. pt had an abnormal stress test which reveals "fixed defect in the anterior apex. No convincing significant reversible perfusion defects, normal EF at 83%, septal hypokinesis, normal left ventricular cavity size no change with stress." Pt prefer to be transferred to [facility] or [facility]. The call was made to [facility]. [facility] both deployment technician Dr. Garcia and hospitalist Dr Dykes accepted for high level of care. pt will transferred to [facility]. pt is hemodynamic stable now. The detail hospital course is as the below. Thank [facility] provider to accept pt for high level of care. (1) Chest pain, rule out acute myocardial infarction resolved. Aspirin and Nitroglycerin Sb release pt's chest pain. pt denies any more chest pain. pt has normal troponin level, but has abnormal EKG T wave inversion in leads V2-V4. Stress test reveals fixed defect in the anterior apex. No convincing significant reversible perfusion defects, normal EF at 83%, septal hypokinesis, normal left ventricular cavity size no change with stress. call [facility], both deployment technician Dr. Garcia and hospitalist Dr Dykes accepted for high level of care pt is prescribed Aspirin, Lipitor, Coreg, nitroglycerin PRN Abnormal EKG T wave inversion in leads V2-V4 GERD stable abnormal Stress test Stress test reveals fixed defect in the anterior apex. No convincing significant reversible perfusion defects, normal EF at 83%, septal hypokinesis, normal left ventricular cavity size no change with stress. Hyperlipidemia elevated both cholesterol and LDL level. pt is prescribed Lipitor. - ALLERGIES Allergies/Adverse Reactions: Allergies Allergy/AdvReac Type Severity Reaction Status Date / Time acyclovir Allergy Rash Verified 09/20/18 16:37 cephalexin [From Keflex] Allergy Anaphylaxis Verified 09/20/18 16:37 erythromycin base Allergy Rash Verified 09/20/18 16:37 naproxen Allergy Rash Verified 09/20/18 16:37 Penicillins Allergy Anaphylaxis Verified 09/20/18 16:37 Sulfa (Sulfonamide Allergy Rash Verified 09/20/18 16:37 Antibiotics) celecoxib [From Celebrex] AdvReac Cramps Verified 09/20/18 16:37 - MEDICATIONS Home Medications: Ambulatory Orders Medication Instructions Recorded Confirmed Ascorbic Acid [Vitamin C] 500 mg PO BID 05/17/19 05/17/19 Cholecalciferol [Vitamin D3] 5,000 units PO DAILY 05/17/19 05/17/19 Estradiol [Climara 0.0375 mg] 1 patch TOP MOTH 05/17/19 05/17/19 Estradiol [Vagifem] 10 mcg VG MOTH 05/17/19 05/17/19 Ibuprofen 400 mg PO QPM PRN 05/17/19 05/17/19 Loratadine [Allergy] 10 mg PO DAILY PRN 05/17/19 05/17/19 Upper Tract-3/Dha/Epa/Fish Oil [Fish Oil 1 cap PO DAILY 05/17/19 05/17/19 1,000 mg Softgel] Progesterone, Micronized 100 mg PO QPM 05/17/19 05/17/19 [Progesterone] - PHYSICAL EXAM AT DISCHARGE General Appearance: positive: No acute distress, Alert. negative: Lethargic Eyes Bilateral: positive: Normal inspection, PERRL, EOMI, No lid inflammation ENT: positive: ENT inspection nml, Pharynx nml, No signs of dehydration. negative: Purulent nasal drainage Neck: positive: Nml inspection, Thyroid nml, No JVD, Trachea midline. negative: Thyromegaly, Lymphadenopathy (R), Lymphadenopathy (L), Stiff neck, Tracheal deviation Respiratory: positive: Chest non-tender, No respiratory distress, Breath sounds nml. negative: Wheezes, Rales, Rhonchi Cardiovascular: positive: Regular rate & rhythm, No murmur, No gallop. negative: Irregularly irregular, Extrasystoles, Tachycardia, Bradycardia, JVD present, Systolic murmur, Diastolic murmur Peripheral Pulses: positive: 2+ Abdomen: positive: Non-tender, No organomegaly, Nml bowel sounds, No distention. negative: Tenderness, Guarding, Rebound Back: positive: Nml inspection. negative: CVA tenderness (R), CVA tenderness (L) Skin: positive: Color nml, No rash, Warm, Dry. negative: Cyanosis, Diaphoresis, Pallor Extremities: positive: Non-tender, Full ROM, Nml appearance. negative: Calf tenderness, Rajiv's sign/cords Neurologic/Psychiatric: positive: Oriented x3, Motor nml, Sensation nml, Mood/affect nml. negative: Weakness, Sensory loss, Facial droop, Slurred/abnml speech, Depressed mood/affect - LABS Result Diagrams: 05/18/19 05:25 05/18/19 05:25 - FOLLOW UP Follow Up: followup [facility] for high level of care - TIME SPENT Time Spent in Discharge (Minutes): 30
[2019-05-18 20:44] VITALS: BP 129/77
[2019-05-18] MEDS: ATORVASTATIN 40 MG TABLET PO SCH (20:49)
[2019-05-18] MEDS ORDERED: carvediloL 3.125 MG TABLET PO SCH (21:00)
== END 2019-05-18 20:58 | disposition short-term general hospital (02) ==
LOC: EDUNIT# → ED 11:23 → MS2 14:34
PROVIDERS: ADMIT Nurse Practitioner; ATTEND Nurse Practitioner Gerontology
DX: R07.9 Chest pain, unspecified (principal); R94.31 Abnormal electrocardiogram [ECG] [EKG]; R94.39 Abnormal result of other cardiovascular function study; R53.1 Weakness; R42 Dizziness and giddiness; E78.2 Mixed hyperlipidemia; M19.90 Unspecified osteoarthritis, unspecified site; M54.5 Low back pain; M21.372 Foot drop, left foot; K21.9 Gastro-esophageal reflux disease without esophagitis; G89.29 Other chronic pain; H54.7 Unspecified visual loss; L29.9 Pruritus, unspecified; Z56.3 Stressful work schedule; Z78.0 Asymptomatic menopausal state; Z79.890 Hormone replacement therapy; Z81.1 Family history of alcohol abuse and dependence; Z82.3 Family history of stroke; Z82.49 Family history of ischemic heart disease and other diseases of the circulatory system; Z88.0 Allergy status to penicillin; Z88.1 Allergy status to other antibiotic agents; Z88.2 Allergy status to sulfonamides; Z88.8 Allergy status to other drugs, medicaments and biological substances
CPT/HCPCS: 36415; 71045; 78452; 80053; 80061; 83036; 83690; 83735; 83880; 84100; 84484; 85025; 85379; 86140; 93005; 93017; 93306; 99284; 99285; A9270; A9500; G0378; 83721

== ENCOUNTER 2019-05-18 21:07 | Outpatient (CLI) | payer BC | END 2019-05-18 21:08 | disposition short-term general hospital (02) | LOC: EMS 21:07 | PROVIDERS: ATTEND Surgery | DX: R07.9 Chest pain, unspecified (principal) | CPT/HCPCS: A0425; A0426 ==

== ENCOUNTER 2019-09-09 18:45 | Outpatient (CLI) | payer BC | END 2019-09-09 18:46 | disposition home or self-care (01) | LOC: RT 18:45 | PROVIDERS: ATTEND Nurse Practitioner Family | DX: I25.9 Chronic ischemic heart disease, unspecified (principal) | CPT/HCPCS: 93005 ==

== ENCOUNTER 2019-09-19 13:59 | Outpatient (CLI) | payer BC ==
[2019-09-19 17:39] LABS: BASOPHILS # (AUTO) 0.1 10^3/uL (0.0-0.1); BASOPHILS % (AUTO) 0.6 %; EOSINOPHILS # (AUTO) 0.2 10^3/uL (0.0-0.7); EOSINOPHILS % (AUTO) 2.1 %; HGB - HEMOGLOBIN 13.2 g/dL (12.0-16.0); LYMPHOCYTES # (AUTO) 1.8 10^3/uL (1.5-3.5); LYMPHOCYTES % (AUTO) 18.5 %; MEAN CORPUSCULAR HEMOGLOBIN 30.3 pg (27.0-31.0); MEAN CORPUSCULAR HGB CONC 32.4 g/dL (32.0-36.0); MEAN CORPUSCULAR VOLUME 93.3 fL (81.0-99.0); MEAN PLATELET VOLUME 12.8 fL (7.9-10.8); MONOCYTES # (AUTO) 0.6 10^3/uL (0.0-1.0); NEUTROPHILS % (AUTO) 72.4 %; PLT - PLATELET COUNT 194 10^3/uL (130-450); RED BLOOD COUNT 4.36 10^6/uL (4.20-5.40); WHITE BLOOD COUNT 9.7 x10^3/uL (4.8-10.8)
[2019-09-19 17:57] LABS: ALBUMIN/GLOBULIN RATIO 1.4 (1.0-2.2); BILIRUBIN,TOTAL 0.9 mg/dL (0.2-1.0); CALCIUM 8.8 mg/dL (8.5-10.3); CREATININE 0.7 mg/dL (0.4-1.0); TOTAL PROTEIN 6.8 g/dL (6.7-8.2)
== END 2019-09-19 14:00 | disposition home or self-care (01) ==
LOC: LAB.S 13:59
PROVIDERS: ATTEND Emergency Medicine
DX: R19.7 Diarrhea, unspecified (principal)
CPT/HCPCS: 36415; 80053; 85025

== ENCOUNTER 2019-12-13 12:11 | Outpatient (CLI) | payer BC | END 2019-12-13 12:12 | disposition critical access hospital (66) | LOC: EMS 12:11 | PROVIDERS: ATTEND Surgery | DX: R06.09 Other forms of dyspnea (principal) | CPT/HCPCS: A0425; A0429 ==

== ENCOUNTER 2019-12-13 12:34 | Emergency (ER) | payer BC ==
[2019-12-13] MEDS ORDERED: SODIUM CHLORIDE 0.9% 1,000 ML IV STA (13:30)
--- NOTE | 2019-12-13 14:12 | XRAY Report ---
PROCEDURE: Chest 1 View X-Ray INDICATIONS: Chest Pain TECHNIQUE: One view of the chest was acquired. COMPARISON: Chest radiograph dated 05/17/2019 FINDINGS: Surgical changes and devices: Postsurgical changes are again seen from right clavicular fracture fix ation. Lungs and pleura: No pleural effusions or pneumothorax. Lungs are clear. Mediastinum: Mediastinal contours appear normal. Heart size is normal. Bones and chest wall: No suspicious bony lesions. Overlying soft tissues appear unremarkable. IMPRESSION: No acute cardiopulmonary abnormality. Reviewed by: Oral Marie MD on 12/13/2019 2:11 PM PDT Approved by: Oral Marie MD on 12/13/2019 2:11 PM PDT Station ID: [id number]
[2019-12-13 14:15] LABS: BASOPHILS # (AUTO) 0.1 10^3/uL (0.0-0.1); BASOPHILS % (AUTO) 0.6 %; EOSINOPHILS # (AUTO) 0.1 10^3/uL (0.0-0.7); EOSINOPHILS % (AUTO) 1.3 %; HGB - HEMOGLOBIN 13.3 g/dL (12.0-16.0); LYMPHOCYTES % (AUTO) 23.3 %; MEAN CORPUSCULAR HEMOGLOBIN 30.3 pg (27.0-31.0); MEAN CORPUSCULAR HGB CONC 32.5 g/dL (32.0-36.0); MEAN CORPUSCULAR VOLUME 93.2 fL (81.0-99.0); MEAN PLATELET VOLUME 12.1 fL (7.9-10.8); MONOCYTES # (AUTO) 0.6 10^3/uL (0.0-1.0); MONOCYTES % (AUTO) 6.7 %; NEUTROPHILS # (AUTO) 5.9 10^3/uL (1.5-6.6); NEUTROPHILS % (AUTO) 67.8 %; PLT - PLATELET COUNT 195 10^3/uL (130-450); RED BLOOD COUNT 4.39 10^6/uL (4.20-5.40); RED CELL DISTRIBUTION WIDTH 12.6 % (12.0-15.0); WHITE BLOOD COUNT 8.6 x10^3/uL (4.8-10.8)
[2019-12-13 14:19] LABS: INR 1.1 (0.8-1.2); PT - PROTHROMBIN TIME 12.5 secs (9.9-12.6)
[2019-12-13 14:30] LABS: ALBUMIN/GLOBULIN RATIO 1.3 (1.0-2.2); BILIRUBIN,TOTAL 1.2 mg/dL (0.2-1.0); CALCIUM 9.2 mg/dL (8.5-10.3); CREATININE 0.7 mg/dL (0.4-1.0); TOTAL PROTEIN 7.1 g/dL (6.7-8.2)
[2019-12-13 14:39] LABS: D-DIMER 231.9 ng/mL (200.0-255.0)
--- NOTE | 2019-12-13 14:44 | ED Physician Documentation ---
History of Present Illness - Stated complaint Stated Complaint: SOA - Chief complaint Chief Complaint: Resp - History obtained from History obtained from: Patient - Additonal information Additional information: Patient comes emergency department chief complaint of shortness of breath. Patient states that she has been noticing it today and yesterday while talking, which is unusual for her. Patient has been going through an extensive, exhaustive work-up for dyspnea and so far, work-up has been negative. She has had a cardiac catheterization, 2 echoes, and imaging of her chest repeatedly. The patient is on vitamins. She states that she is scheduled to see a grit removal operator on Friday. She states that today, she felt as though she was getting short of breath even trying to converse. She states that she tried to do some weed whacking on her property this weekend and 10 minutes and had to quit and lay down. Patient states that this kind of symptomatology has been going on for months. Patient denies fevers or chills. No cough. She states she has had a persistent pain in her lower substernal area. She states her cardiac catheterization was on 10/31 of this year and her last echo was just a few days before. 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 She is also had a sleep study previously which is been unremarkable. She states she was previously healthy, worked many hours, and cared for 6 acres on her property without difficulty. She states she is very frustrated by what is going on. Review of Systems Ten Systems: 10 systems reviewed and negative Constitutional: reports: Reviewed and negative Eyes: reports: Reviewed and negative Ears: reports: Reviewed and negative Nose: reports: Reviewed and negative Throat: reports: Reviewed and negative Cardiac: reports: Chest pain / pressure Respiratory: reports: Dyspnea GI: reports: Reviewed and negative : reports: Reviewed and negative Skin: reports: Reviewed and negative Musculoskeletal: reports: Reviewed and negative Neurologic: reports: Reviewed and negative Psychiatric: reports: Reviewed and negative Endocrine: reports: Reviewed and negative Immunocompromised: reports: Reviewed and negative PD PAST MEDICAL HISTORY - Past Medical History Past Medical History: Yes Cardiovascular: High cholesterol Respiratory: None Neuro: Head injury Endocrine/Autoimmune: None GI: GERD, 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 : Frequency HEENT: Chronic vision loss Psych: None Musculoskeletal: Chronic back pain, Other Derm: None - Past Surgical History Past Surgical History: Yes General: EGD HEENT: Tonsil/Adenoidectomy - Present Medications Home Medications: Ambulatory Orders Medication Instructions Recorded Confirmed Ascorbic Acid [Vitamin C] 500 mg PO BID 05/17/19 05/17/19 Cholecalciferol [Vitamin D3] 5,000 units PO DAILY 05/17/19 05/17/19 Estradiol [Climara 0.0375 mg] 1 patch TOP MOTH 05/17/19 05/17/19 Estradiol [Vagifem] 10 mcg VG MOTH 05/17/19 05/17/19 Ibuprofen 400 mg PO QPM PRN 05/17/19 05/17/19 Loratadine [Allergy] 10 mg PO DAILY PRN 05/17/19 05/17/19 [place]-3/Dha/Epa/Fish Oil [Fish Oil 1 cap PO DAILY 05/17/19 05/17/19 1,000 mg Softgel] Progesterone, Micronized 100 mg PO QPM 05/17/19 05/17/19 [Progesterone] - Allergies Allergies/Adverse Reactions: Allergies Allergy/AdvReac Type Severity Reaction Status Date / Time acyclovir Allergy Rash Verified 12/13/19 12:38 cephalexin [From Keflex] Allergy Anaphylaxis Verified 12/13/19 12:38 erythromycin base Allergy Rash Verified 12/13/19 12:38 naproxen Allergy Rash Verified 12/13/19 12:38 Penicillins Allergy Anaphylaxis Verified 12/13/19 12:38 Sulfa (Sulfonamide Allergy Rash Verified 12/13/19 12:38 Antibiotics) celecoxib [From Celebrex] AdvReac Cramps Verified 12/13/19 12:38 - Social History Does the pt smoke?: No Smoking Status: Never smoker Does the pt drink ETOH?: No Does the pt have substance abuse?: No - Immunizations Immunizations are current?: Yes - POLST Patient has POLST: No POLST Status: Full Code PD ED PE NORMAL - Vitals Vital signs reviewed: Yes - General General: Alert and oriented X 3, No acute distress, Well developed/nourished, Other - HEENT HEENT: PERRL - Neck Neck: Supple, no meningeal sign - Cardiac Cardiac: RRR, No murmur - Respiratory Respiratory: No respiratory distress, Clear bilaterally, Other (Patient converses without any sort of distress and at length.) - Abdomen Abdomen: Soft, Non tender, Non distended - Derm Derm: Normal color, Warm and dry, No rash - Extremities Extremities: No deformity, No edema, No calf tenderness / cord - Neuro Neuro: Alert and oriented X 3, Other (Grossly normal) - Psych Psych: Normal mood, Normal affect Results - Vitals Vitals: Vital Signs - 24 hr 12/13/19 12/13/19 12/13/19 12:38 12:42 14:02 Temperature 36.5 C 36.5 C 36.5 C Heart Rate 76 76 72 Respiratory 20 20 20 Rate Blood Pressure 124/80 124/80 109/66 O2 Saturation 100 100 100 12/13/19 15:05 Temperature 37.2 C Heart Rate 72 Respiratory 16 Rate Blood Pressure 145/90 H O2 Saturation 100 Oxygen O2 Source Room air - EKG (time done) 1336 Rate: Rate (enter#) (66) Rhythm: NSR Herman: Normal Intervals: Normal [place] QRS: Normal Ischemia: Normal ST segments, Non specific changes Compare to prior EKG: Old EKG unavailable Computer interpretation: Agree with computer - Labs Labs: Laboratory Tests 12/13/19 12/13/19 12/13/19 13:40 13:40 13:40 WBC 8.6 RBC 4.39 Hgb 13.3 Hct 40.9 MCV 93.2 MCH 30.3 MCHC 32.5 RDW 12.6 Plt Count 195 MPV 12.1 H Neut # (Auto) 5.9 Lymph # (Auto) 2.0 [place] # (Auto) 0.6 Eos # (Auto) 0.1 Baso # (Auto) 0.1 Absolute Nucleated RBC 0.00 Nucleated RBC % 0.0 PT 12.5 INR 1.1 D-Dimer 231.9 Sodium 142 Potassium 3.4 L Chloride 103 Carbon Dioxide 27 Anion Gap 12.0 BUN 14 Creatinine 0.7 Estimated GFR (MDRD) 83 L Glucose 89 Calcium 9.2 Total Bilirubin 1.2 H AST 24 ALT 19 Alkaline Phosphatase 56 Troponin I High Sens B-Natriuretic Peptide Total Protein 7.1 Albumin 4.0 Globulin 3.1 Albumin/Globulin Ratio 1.3 Lipase 32 12/13/19 12/13/19 13:40 13:40 WBC RBC Hgb Hct MCV MCH MCHC RDW Plt Count MPV Neut # (Auto) Lymph # (Auto) [place] # (Auto) Eos # (Auto) Baso # (Auto) Absolute Nucleated RBC Nucleated RBC % PT INR D-Dimer Sodium Potassium Chloride Carbon Dioxide Anion Gap BUN Creatinine Estimated GFR (MDRD) Glucose Calcium Total Bilirubin AST ALT Alkaline Phosphatase Troponin I High Sens 3.4 B-Natriuretic Peptide 30 Total Protein Albumin Globulin Albumin/Globulin Ratio Lipase - Rads (name of study) chest XR Radiology: Final report received, EMP read indepedently, See rad report (neg) PD MEDICAL DECISION MAKING - ED course Complexity details: reviewed results, re-evaluated patient, considered differential, d/w patient ED course: I discussed with the patient that her work-up is unremarkable. The patient has had extensive work-up as an outpatient with multiple specialists involved and is scheduled to see another specialist this Friday. We have obtained an EKG which is unremarkable, a chest x-ray which is normal, and normal d-dimer, and normal basic labs. The patient's troponin is also unremarkable and she is just had a negative cardiac catheterization within the last month. Echocardiogram has also been unremarkable. I am not sure what is causing this patient's sense of dyspnea. She is not clinically dyspneic upon my evaluation and her oxygen saturation is 100% on room air. Her respiratory rate is normal and her heart rate is, as well. I have advised her to follow-up with her primary care physician and specialists as planned to continue to evaluate the situation and her ongoing symptoms. Departure - Departure Disposition: 01 Home, Self Care Clinical Impression: Dyspnea Qualifiers: Dyspnea type: unspecified Qualified Code(s): R06.00 - Dyspnea, unspecified Condition: Stable Instructions: ED Dyspnea Shortness of Breath Comments: Her work-up in the emergency department, including chest x-ray, EKG, d-dimer, troponin, and basic labs all look good. It is not clear why you have a sense of ongoing shortness of breath. Your oxygen saturation has been 100% throughout your stay and your heart rate is normal. Your lungs are clear and breathing is unlabored, even with talking. Please continue to follow-up with your outpatient physicians to try to get to the bottom of why you are going through these symptoms. Discharge Date/Time: 12/13/19 15:16
[2019-12-13 15:06] VITALS: BP 145/90
== END 2019-12-13 15:16 | disposition home or self-care (01) ==
LOC: EDUNIT# → ED 12:34
DX: R06.02 Shortness of breath (principal); R07.89 Other chest pain; Z98.61 Coronary angioplasty status
CPT/HCPCS: 36415; 71045; 80053; 83690; 83880; 84484; 85025; 85379; 85610; 93005; 99284

== ENCOUNTER 2020-01-06 16:59 | Outpatient (CLI) | payer BC | END 2020-01-06 17:00 | disposition home or self-care (01) | LOC: COV 16:59 | PROVIDERS: ATTEND Nurse Practitioner Family | DX: U07.1 COVID-19 (principal) ==

== ENCOUNTER 2020-01-27 14:17 | Outpatient (CLI) | payer BC ==
[2020-01-27 20:17] LABS: T4 (THYROXINE) 6.47 ug/dL (6.09-12.23)
[2020-01-27 20:20] LABS: THYROID STIMULATING HORMONE 1.23 uIU/mL (0.34-5.60)
[2020-01-27 20:21] LABS: FREE T3 2.76 pg/mL (2.5-3.9)
[2020-01-27 20:22] LABS: FREE T4 (FREE THYROXINE) 0.81 ng/dL (0.58-1.64)
== END 2020-01-27 14:18 | disposition home or self-care (01) ==
LOC: LAB.S 14:17
PROVIDERS: ATTEND Nurse Practitioner Family
DX: R52 Pain, unspecified (principal); E55.9 Vitamin D deficiency, unspecified
CPT/HCPCS: 36415; 82306; 84436; 84439; 84443; 84481; 85651; 86140; 86376

== ENCOUNTER 2020-06-30 08:41 | Outpatient (CLI) | payer MEDICARE, OTHER ==
[2020-06-30 15:33] LABS: GLUCOSE,FASTING 98 mg/dL (70-100)
[2020-06-30 15:35] LABS: CRP - C-REACTIVE PROTEIN < 1.0 mg/dL (0-1.0)
[2020-06-30 20:38] LABS: ESTIMATED AVERAGE GLUCOSE 108 mg/dL (70-100); HEMOGLOBIN A1c% 5.4 % (4.27-6.07)
[2020-07-04 09:07] LABS: ANA SCREEN NEGATIVE (NEGATIVE)
== END 2020-06-30 08:42 | disposition home or self-care (01) ==
LOC: LAB.S 08:41
PROVIDERS: ATTEND Nurse Practitioner Family
DX: E16.2 Hypoglycemia, unspecified (principal); K21.9 Gastro-esophageal reflux disease without esophagitis; M54.5 Low back pain; Z73.3 Stress, not elsewhere classified; M25.50 Pain in unspecified joint
CPT/HCPCS: 36415; 81599; 82947; 83036; 83525; 85651; 86038; 86140; 86200

== ENCOUNTER 2020-07-18 10:17 | Outpatient (CLI) | payer MEDICARE, OTHER ==
[2020-07-18 14:54] LABS: BASOPHILS # (AUTO) 0.1 10^3/uL (0.0-0.1); BASOPHILS % (AUTO) 0.8 %; EOSINOPHILS # (AUTO) 0.4 10^3/uL (0.0-0.7); EOSINOPHILS % (AUTO) 5.7 %; HCT - HEMATOCRIT 41.9 % (37.0-47.0); HGB - HEMOGLOBIN 13.3 g/dL (12.0-16.0); LYMPHOCYTES # (AUTO) 2.2 10^3/uL (1.5-3.5); LYMPHOCYTES % (AUTO) 30.8 %; MEAN CORPUSCULAR HEMOGLOBIN 30.2 pg (27.0-31.0); MEAN CORPUSCULAR HGB CONC 31.7 g/dL (32.0-36.0); MEAN CORPUSCULAR VOLUME 95.2 fL (81.0-99.0); MEAN PLATELET VOLUME 12.9 fL (7.9-10.8); MONOCYTES # (AUTO) 0.5 10^3/uL (0.0-1.0); MONOCYTES % (AUTO) 7.4 %; NEUTROPHILS # (AUTO) 3.9 10^3/uL (1.5-6.6); PLT - PLATELET COUNT 174 10^3/uL (130-450); RED CELL DISTRIBUTION WIDTH 13.3 % (12.0-15.0); WHITE BLOOD COUNT 7.2 x10^3/uL (4.8-10.8)
[2020-07-18 15:09] LABS: ALBUMIN 4.2 g/dL (3.2-5.5); ALBUMIN/GLOBULIN RATIO 1.4 (1.0-2.2); BILIRUBIN,TOTAL 1.5 mg/dL (0.2-1.0); CALCIUM 9.5 mg/dL (8.5-10.3); CREATININE 0.6 mg/dL (0.4-1.0); POTASSIUM 3.8 mmol/L (3.5-5.0); TOTAL PROTEIN 7.2 g/dL (6.7-8.2)
[2020-07-18 15:27] LABS: T4 (THYROXINE) 7.43 ug/dL (6.09-12.23)
[2020-07-18 15:29] LABS: THYROID STIMULATING HORMONE 1.68 uIU/mL (0.34-5.60)
[2020-07-18 15:31] LABS: FREE T3 2.89 pg/mL (2.5-3.9)
[2020-07-18 15:33] LABS: FREE T4 (FREE THYROXINE) 0.86 ng/dL (0.58-1.64)
== END 2020-07-18 10:18 | disposition home or self-care (01) ==
LOC: LAB.S 10:17
PROVIDERS: ATTEND Nurse Practitioner Family
DX: E03.2 Hypothyroidism due to medicaments and other exogenous substances (principal); R53.83 Other fatigue
CPT/HCPCS: 36415; 80053; 84436; 84439; 84443; 84481; 84482; 85025

== ENCOUNTER 2021-07-14 08:00 | Outpatient (CLI) | payer MEDICARE, OTHER ==
[2021-07-17 17:09] LABS: GIARDIA LAMBLIA AG EIA Negative (Negative)
== END 2021-07-14 23:59 | disposition home or self-care (01) ==
LOC: LAB.S 08:00
PROVIDERS: ATTEND Physician Assistant Medical
DX: R19.7 Diarrhea, unspecified (principal)
CPT/HCPCS: 87045; 87046; 87177; 87328; 87329; 87427; 87493

== ENCOUNTER 2021-09-07 08:00 | Outpatient (CLI) | payer MEDICARE, OTHER ==
[2021-09-09 15:07] LABS: GIARDIA LAMBLIA AG EIA Negative (Negative)
== END 2021-09-07 23:59 | disposition home or self-care (01) ==
LOC: LAB.S 08:00
PROVIDERS: ATTEND Registered Nurse
DX: R19.7 Diarrhea, unspecified (principal)
CPT/HCPCS: 83630; 83993; 87045; 87046; 87177; 87328; 87329; 87427

== ENCOUNTER 2022-08-27 08:09 | Outpatient (CLI) | payer MEDICARE, OTHER ==
[2022-08-27 14:33] LABS: BASOPHILS # (AUTO) 0.1 10^3/uL (0.0-0.1); BASOPHILS % (AUTO) 0.9 %; EOSINOPHILS # (AUTO) 0.4 10^3/uL (0.0-0.7); EOSINOPHILS % (AUTO) 6.2 %; HCT - HEMATOCRIT 41.2 % (37.0-47.0); LYMPHOCYTES # (AUTO) 2.3 10^3/uL (1.5-3.5); LYMPHOCYTES % (AUTO) 33.9 %; MEAN CORPUSCULAR HEMOGLOBIN 29.6 pg (27.0-31.0); MEAN CORPUSCULAR HGB CONC 31.6 g/dL (32.0-36.0); MEAN CORPUSCULAR VOLUME 93.8 fL (81.0-99.0); MEAN PLATELET VOLUME 13.9 fL (7.9-10.8); MONOCYTES # (AUTO) 0.6 10^3/uL (0.0-1.0); MONOCYTES % (AUTO) 8.7 %; NEUTROPHILS # (AUTO) 3.4 10^3/uL (1.5-6.6); NEUTROPHILS % (AUTO) 50.2 %; PLT - PLATELET COUNT 154 10^3/uL (130-450); RED BLOOD COUNT 4.39 10^6/uL (4.20-5.40); RED CELL DISTRIBUTION WIDTH 13.8 % (12.0-15.0); WHITE BLOOD COUNT 6.8 x10^3/uL (4.8-10.8)
[2022-08-27 14:50] LABS: % IRON SATURATION 26 % (20-50); IRON 80 ug/dL (28-170); TOTAL IRON BINDING CAPACITY 308 ug/dL (250-450); TRANSFERRIN 220 mg/dL (192-382)
[2022-08-27 15:09] LABS: FERRITIN 109.4 ng/mL (11.0-306.8)
== END 2022-08-27 08:10 | disposition home or self-care (01) ==
LOC: LAB.S 08:09
PROVIDERS: ATTEND Internal Medicine
DX: D64.9 Anemia, unspecified (principal); U09.9 Post COVID-19 condition, unspecified; Z79.899 Other long term (current) drug therapy
CPT/HCPCS: 36415; 82306; 82607; 82728; 83540; 84466; 85025

== ENCOUNTER 2022-12-26 07:32 | Outpatient (CLI) | payer MEDICARE, OTHER ==
[2022-12-26 14:50] LABS: BASOPHILS # (AUTO) 0.1 10^3/uL (0.0-0.1); BASOPHILS % (AUTO) 0.7 %; EOSINOPHILS # (AUTO) 0.2 10^3/uL (0.0-0.7); EOSINOPHILS % (AUTO) 2.3 %; HCT - HEMATOCRIT 42.1 % (37.0-47.0); HGB - HEMOGLOBIN 13.5 g/dL (12.0-16.0); LYMPHOCYTES # (AUTO) 2.1 10^3/uL (1.5-3.5); LYMPHOCYTES % (AUTO) 29.9 %; MEAN CORPUSCULAR HEMOGLOBIN 30.1 pg (27.0-31.0); MEAN CORPUSCULAR HGB CONC 32.1 g/dL (32.0-36.0); MEAN PLATELET VOLUME 13.5 fL (7.9-10.8); MONOCYTES # (AUTO) 1.1 10^3/uL (0.0-1.0); NEUTROPHILS # (AUTO) 3.7 10^3/uL (1.5-6.6); NEUTROPHILS % (AUTO) 51.8 %; PLT - PLATELET COUNT 149 10^3/uL (130-450); RED BLOOD COUNT 4.48 10^6/uL (4.20-5.40); RED CELL DISTRIBUTION WIDTH 13.5 % (12.0-15.0); WHITE BLOOD COUNT 7.1 x10^3/uL (4.8-10.8)
[2022-12-26 15:22] LABS: FERRITIN 119.9 ng/mL (11.0-306.8)
[2022-12-26 15:29] LABS: CALCIUM 9.1 mg/dL (8.5-10.3); CREATININE 0.7 mg/dL (0.6-1.3); POTASSIUM 3.8 mmol/L (3.5-4.5)
== END 2022-12-26 07:33 | disposition home or self-care (01) ==
LOC: LAB.S 07:32
PROVIDERS: ATTEND Internal Medicine
DX: D64.9 Anemia, unspecified (principal); Z79.899 Other long term (current) drug therapy
CPT/HCPCS: 36415; 80048; 82728; 85025; 86140

== ENCOUNTER 2023-01-13 07:59 | Outpatient (CLI) | payer MEDICARE, OTHER ==
--- NOTE | 2023-01-13 10:59 | XRAY Report ---
PROCEDURE: Cervical Spine Comp w/Flex/Ext INDICATIONS: CHRONIC PAIN, LFT SHLDR PAIN, THORASIC, SACROLIC TECHNIQUE: 7 views of the cervical spine were acquired. COMPARISON: None. FINDINGS: Bones: No fractures or dislocations to the T1 level. Moderate degenerative changes in the cervical s pine. There is left neuroforaminal narrowing at C2-C3 and C3-C4 and C6-C7. No suspicious bony lesions . There is normal range of motion between flexion and extension, with preserved normal bony alignmen t. Right clavicle ORIF. Soft tissues: Prevertebral soft tissues are normal in thickness. IMPRESSION: Moderate degenerative changes in the cervical spine. Left multilevel bony neural foraminal narrowing. Reviewed by: Brandon Alves MD on 01/13/2023 10:58 AM [facility] Approved by: Brandon Alves MD on 01/13/2023 10:58 AM [facility] Station ID: [id number]
--- NOTE | 2023-01-13 11:01 | XRAY Report ---
PROCEDURE: Sacrum/Coccyx INDICATIONS: CHRONIC PAIN,LFT SHLDR ,THORASIC,SACRUM PAIN TECHNIQUE: 2 views of the sacrum and coccyx acquired. COMPARISON: None. FINDINGS: Bones: No fractures or dislocations. Mild degenerative changes at the SI joints. SI joints are symm etric. No suspicious bony lesions. Moderate bilateral hip DJD. Soft tissues: Visualized bowel gas pattern is normal. No suspicious soft tissue densities. IMPRESSION: Mild degenerative changes at the SI joints. Moderate bilateral hip DJD. Reviewed by: Brandon Alves MD on 01/13/2023 11:00 AM [facility] Approved by: Brandon Alves MD on 01/13/2023 11:00 AM PST Station ID: [id number]
--- NOTE | 2023-01-13 11:49 | XRAY Report ---
PROCEDURE: Shoulder 3 View LT INDICATIONS: PAIN IN LEFT SHOULDER TECHNIQUE: 3 views of the shoulder were acquired. COMPARISON: None. FINDINGS: Bones: No fractures or dislocations. Mildly decreased glenohumeral joint space. No suspicious bony l esions. Visualized ribs appear intact. Soft tissues: No suspicious soft tissue calcifications. The visualized lungs are within normal limi ts. IMPRESSION: No fracture or dislocation. Mild degenerative joint space loss in the glenohumeral joint. Reviewed by: Yue Suárez MD on 01/13/2023 11:47 AM PST Approved by: Yue Suárez MD on 01/13/2023 11:47 AM PST Station ID: [id number]
--- NOTE | 2023-01-13 12:41 | XRAY Report ---
PROCEDURE: Thoracic Spine 2 View INDICATIONS: PAIN IN THORACIC SPINE TECHNIQUE: 2 views of the thoracic spine were acquired. COMPARISON: Same day . FINDINGS: Bones: No fractures or dislocations. Mild degenerative changes. No suspicious bony lesions. 12 jace rs of ribs are noted, and appear intact where visualized. Right clavicle ORIF. Soft tissues: No paravertebral stripe thickening. IMPRESSION: No compression fracture. Reviewed by: Brandon Alves MD on 01/13/2023 12:39 PM PST Approved by: Brandon Alves MD on 01/13/2023 12:39 PM PST Station ID: [id number]
== END 2023-01-13 08:00 | disposition home or self-care (01) ==
LOC: DI.S 07:59
PROVIDERS: ATTEND Internal Medicine
DX: M47.812 Spondylosis without myelopathy or radiculopathy, cervical region (principal); M47.898 Other spondylosis, sacral and sacrococcygeal region; M19.012 Primary osteoarthritis, left shoulder; M47.814 Spondylosis without myelopathy or radiculopathy, thoracic region

== ENCOUNTER 2023-02-18 10:34 | Outpatient (CLI) | payer MEDICARE, OTHER ==
[~2023-02-18 10:34] MED LIST: GADOTERATE MEGLUMINE 10 MMOL/20 ML VIAL ONE
[2023-02-18 11:42] LABS: CREATININE 0.7 mg/dL (0.6-1.3)
--- NOTE | 2023-02-18 18:21 | MRI Report ---
PROCEDURE: MRI of the cervical spine with and without contrast INDICATIONS: 72-year-old female with known thoracic syrinx. Evaluate cervical spine CONTRAST: clariscan 12ml TECHNIQUE: Noncontrast sagittal T1 spin echo and T2 fast spin echo, sagittal STIR, sagittal PD fast spin echo, f oraminal oblique sagittal T2 fast spin echo, axial gradient echo or T2 fast spin echo through the cer vical spine. After the administration of contrast, sagittal and axial T1 spin echo with fat saturati on through the cervical spine. COMPARISON: None available FINDINGS: Image quality: Excellent. Alignment and curvature: There is normal bony alignment. Marrow: Marrow demonstrates normal overall signal. Spinal cord: Within the cervix measures 1.2 mm in diameter arises at the C6-7 level extends into the upper thoracic spine. There is no cord expansion or abnormal enhancement. No evidence of focal mass l esion. No tonsillar ectopia or Chiari malformation Paraspinous soft tissues: No paravertebral masses or suspicious enhancement. At the disc levels, there is disc space narrowing and posterior disc osteophyte complex at C4-5 resul ts in mild central stenosis. Mild disc bulges at C5-6 and C6-7 with mild asymmetric left central sten osis. IMPRESSION: Small syrinx arises at the C6-7 level extends into the upper thorax. No cord expansion or enhancement . No evidence of Chiari malformation. Mild degenerative disc disease and arthropathy. Reviewed by: Siva Nesbitt MD on 02/18/2023 5:20 PM [place] Approved by: Siva Nesbitt MD on 02/18/2023 5:[address] [facility] Station ID: [id number]
[2023-02-18] MEDS ORDERED: GADOTERATE MEGLUMINE 10 MMOL/20 ML VIAL IVP ONE (18:39)
== END 2023-02-18 10:35 | disposition home or self-care (01) ==
LOC: DI 10:34
PROVIDERS: ATTEND Internal Medicine
DX: G95.0 Syringomyelia and syringobulbia (principal); M47.812 Spondylosis without myelopathy or radiculopathy, cervical region; M50.321 Other cervical disc degeneration at C4-C5 level; M48.02 Spinal stenosis, cervical region
CPT/HCPCS: 36415; 72156; 82565; A9575

== ENCOUNTER 2023-07-23 07:11 | Outpatient (CLI) | payer MEDICARE, OTHER ==
[2023-07-23 16:07] LABS: CHOL/HDL RATIO 3.3 (<4.4); CHOLESTEROL 208 mg/dL; HDL CHOLESTEROL 63 mg/dL; LDL CHOLESTEROL,CALCULATED 126 mg/dL; TRIGLYCERIDES 97 mg/dL (48-352); VLDL CHOLESTEROL 19 mg/dL
[2023-07-23 21:10] LABS: ESTIMATED AVERAGE GLUCOSE 120 mg/dL (70-100); HEMOGLOBIN A1c% 5.8 % (4.27-6.07)
== END 2023-07-23 07:12 | disposition home or self-care (01) ==
LOC: LAB.S 07:11
PROVIDERS: ATTEND Internal Medicine
DX: R53.83 Other fatigue (principal); Z79.899 Other long term (current) drug therapy
CPT/HCPCS: 36415; 80061; 83036; 83721